=== PATIENT | female | born 1975 ===

== ENCOUNTER 2024-08-25 07:04 | Inpatient (IN) | payer OTHER ==
[2024-08-23 09:49] VITALS: BP 122/87
[2024-08-23 10:27] LABS: PH,URINE 7.5 (5.0-8.0); URINE APPEARANCE Clear; URINE BILIRRUBIN Negative (NEGATIVE); URINE BLOOD Negative; URINE COLOR Yellow; URINE GLUCOSE Negative (NEGATIVE); URINE KETONE Negative (NEGATIVE); URINE LEUKOCYTE Moderate; URINE NITRATE Negative; URINE PROTEIN Negative (NEGATIVE); URINE UROBILINOGEN 0.2 E.U./dl
[2024-08-23 10:33] LABS: URINE BACTERIA 986.4 uL (0.0-1933); URINE EPITHELIAL CELLS 44.6 uL (0.0-38.8); URINE RBC 6.9 uL (0.0-20.8); URINE WBC 31.3 uL (0.0-23.2)
[2024-08-23 10:37] LABS: BASO % 1.5 % (0.1-1.2); EOS # 0.11 (0.04-0.54); EOS % 2.8 % (0.7-7.0); HEMATOCRIT 38.8 % (34.1-44.9); HEMOGLOBIN 13.4 g/dL (11.2-15.7); LYMPH # 1.24 (1.18-3.74); LYMPH % 31.5 % (19.3-53.1); MEAN CORPUSCULAR HEMOGLOBIN 31.5 pg (25.6-32.2); MONO # 0.35 (0.24-0.82); MONO % 8.9 % (4.7-12.5); NEUT # 2.17 (1.56-6.13); PLATELET COUNT 234 K/uL (163-369); RED BLOOD COUNT 4.25 M/uL (3.93-5.22); RED CELL DISTRIBUTION WIDTH 11.8 % (11.6-14.4)
[2024-08-23 10:51] LABS: COVID-19 AG NEGATIVE (NEGATIVE)
[2024-08-23 11:03] LABS: URINE CAST 0.29 uL (0.0-1.40)
[2024-08-23 11:09] LABS: PARTIAL THROMBOPLASTIN TIME 30.2 SECONDS (22.0-34.0); PROTHROMBIN TIME 10.9 SECONDS (9.0-11.5)
[2024-08-23 11:36] LABS: ALBUMIN 4.1 gm/dL (3.4-5.0); BILIRUBIN TOTAL 0.63 mg/dL (0.3-1.2); CALCIUM 9.3 mg/dL (8.5-10.1); CREATININE SERUM 0.65 mg/dL (0.55-1.02); GFR 96.48; GLOBULINA 3.1 G/DL (2.4-3.5); POTASSIUM 4.47 mEq/L (3.5-5.1); TOTAL PROTEIN 7.2 gm/dL (6.4-8.2)
[2024-08-23 11:45] LABS: RH NEGATIVE
[~2024-08-25] VITALS: Ht 167.6 cm; Wt 68.0 kg
[2024-08-25] MEDS ORDERED: CEFAZOLIN SODIUM 1,000 MG VIAL ONE ×2 (09:53→17:12)
[2024-08-25] MEDS ORDERED: METRONIDAZOLE/SODIUM CHLORIDE 500 MG/100 ML PIGGYBACK IV ONE (09:53)
[2024-08-25] MEDS ORDERED: POVIDONE-IODINE 118 ML BOTT TOP ONE (11:02)
[2024-08-25] MEDS ORDERED: VISTASEAL DUAL APPICATOR 1 EACH APPL TOP ONE (12:23)
[2024-08-25] MEDS ORDERED: THROMBIN,HU/FIBRINOGEN/CALCIUM 10 ML SYRINGE TOP ONE (12:23)
[2024-08-25] MEDS ORDERED: OxyCODONE HCL 5 MG TABLET (ROXICODONE) PO PRN (12:45)
[2024-08-25] MEDS ORDERED: RINGERS SOLUTION,LACTATED 1,000 ML IV SCH (12:45)
[2024-08-25] MEDS ORDERED: KETOROLAC TROMETHAMINE 30 MG VIAL IV ONE (12:45)
[2024-08-25] MEDS ORDERED: SIMETHICONE 125 MG CAPSULE PO SCH (13:00)
[2024-08-25 15:03] LABS: BASO % 0.5 % (0.1-1.2); EOS # 0.01 (0.04-0.54); EOS % 0.1 % (0.7-7.0); HEMATOCRIT 35.2 % (34.1-44.9); HEMOGLOBIN 12.3 g/dL (11.2-15.7); LYMPH # 0.29 (1.18-3.74); LYMPH % 3.4 % (19.3-53.1); MEAN CORPUSCULAR HEMOGLOBIN 31.9 pg (25.6-32.2); MONO # 0.38 (0.24-0.82); MONO % 4.5 % (4.7-12.5); NEUT # 7.71 (1.56-6.13); NEUT % 91.3 % (34.0-71.1); PLATELET COUNT 203 K/uL (163-369); RED BLOOD COUNT 3.85 M/uL (3.93-5.22); RED CELL DISTRIBUTION WIDTH 11.8 % (11.6-14.4)
[2024-08-25] MEDS ORDERED: METOCLOPRAMIDE HCL 5 MG/ML VIAL IV SCH (17:00)
[2024-08-25] MEDS ORDERED: CEFAZOLIN SODIUM 1,000 MG VIAL IV SCH (17:00)
[2024-08-25] MEDS ORDERED: METOCLOPRAMIDE HCL 5 MG/ML VIAL ONE (17:10)
[2024-08-25] MEDS ORDERED: SIMETHICONE 125 MG CAPSULE PO ONE (17:10)
[2024-08-25] MEDS ORDERED: KETOROLAC TROMETHAMINE 30 MG VIAL ONE (17:12)
[2024-08-25 17:48] VITALS: BP 102/66; O2SAT 96
[2024-08-25] MEDS ORDERED: ACETAMINOPHEN 500 MG GEL..CAP PO SCH (18:00)
[2024-08-25 19:07] LABS: ALBUMIN 3.5 gm/dL (3.4-5.0); CALCIUM 8.3 mg/dL (8.5-10.1); CREATININE SERUM 0.64 mg/dL (0.55-1.02); GFR 98.22; PHOSPHOROUS 3.6 mg/dL (2.5-4.9); POTASSIUM 3.98 mEq/L (3.5-5.1)
[2024-08-25] MEDS ORDERED: CELECOXIB 200 MG CAPSULE PO SCH (21:00)
[2024-08-25] MEDS ORDERED: FAMOTIDINE/PF 20 MG/2 ML VIAL IV PUSH SCH (21:00)
[2024-08-25] MEDS ORDERED: GABAPENTIN 300 MG CAPSULE PO SCH (21:00)
[2024-08-25] MEDS ORDERED: DOCUSATE SODIUM 100MG CAP PO SCH ×2 (21:00)
[2024-08-26 01:56] VITALS: BP 103/61; O2SAT 95
[2024-08-26 07:26] LABS: BASO % 0.7 % (0.1-1.2); EOS # 0.02 (0.04-0.54); EOS % 0.3 % (0.7-7.0); HEMATOCRIT 34.2 % (34.1-44.9); HEMOGLOBIN 11.7 g/dL (11.2-15.7); LYMPH # 0.66 (1.18-3.74); LYMPH % 11.5 % (19.3-53.1); MEAN CORPUSCULAR HEMOGLOBIN 31.9 pg (25.6-32.2); MONO # 0.52 (0.24-0.82); NEUT # 4.49 (1.56-6.13); NEUT % 78.2 % (34.0-71.1); PLATELET COUNT 183 K/uL (163-369); RED BLOOD COUNT 3.67 M/uL (3.93-5.22)
[2024-08-26 08:00] VITALS: BP 105/58; O2SAT 96
[2024-08-26 08:11] LABS: ALBUMIN 2.9 gm/dL (3.4-5.0); CALCIUM 8.1 mg/dL (8.5-10.1); CREATININE SERUM 0.74 mg/dL (0.55-1.02); GFR 83.07; PHOSPHOROUS 3.2 mg/dL (2.5-4.9); POTASSIUM 3.65 mEq/L (3.5-5.1)
[2024-08-26] MEDS ORDERED: ENOXAPARIN SODIUM 40 MG/0.4 ML SYRINGE SUBCUTANEO SCH (09:00)
== END 2024-08-26 13:22 | disposition home or self-care (01) | DRG 743 ==
LOC: CIR.AMB 07:04 → O/R 14:30 → EDLOC 14:30 → SURH 16:16
PROVIDERS: Obstetrics & Gynecology; ADMIT Obstetrics & Gynecology Gynecologic Oncology; ATTEND Obstetrics & Gynecology Gynecologic Oncology
PROC: 07BC4ZZ Excision of Pelvis Lymphatic, Percutaneous Endoscopic Approach (ICD-10-PCS; 2024-08-25)
PROC: 0UT64ZZ Resection of Left Fallopian Tube, Percutaneous Endoscopic Approach (ICD-10-PCS; 2024-08-25)
PROC: 0UB14ZZ Excision of Left Ovary, Percutaneous Endoscopic Approach (ICD-10-PCS; 2024-08-25)
PROC: 8E0W4CZ Robotic Assisted Procedure of Trunk Region, Percutaneous Endoscopic Approach (ICD-10-PCS; 2024-08-25)
PROC: 0UT94ZZ Resection of Uterus, Percutaneous Endoscopic Approach (ICD-10-PCS; principal; 2024-08-25 11:30)
DX: D25.9 Leiomyoma of uterus, unspecified (principal); N72 Inflammatory disease of cervix uteri; D36.0 Benign neoplasm of lymph nodes
CPT/HCPCS: 58548; S2900